=== PATIENT | female | born 1965 ===

== ENCOUNTER 2020-03-28 11:50 | Outpatient (CLI) | payer BC | END 2020-03-28 11:51 | disposition home or self-care (01) | LOC: COV 11:50 | PROVIDERS: ATTEND Family Medicine | DX: Z20.828 Contact with and (suspected) exposure to other viral communicable diseases (principal) ==

== ENCOUNTER 2023-09-10 15:42 | Outpatient (CLI) | payer BC ==
--- NOTE | 2023-09-10 20:47 | XRAY Report ---
PROCEDURE: Hips w/Pelvis 2-3V BL INDICATIONS: LEFT HIP PAIN TECHNIQUE: 2 view(s) of the hip were acquired. COMPARISON: None FINDINGS: Bones: No fractures or dislocations. No suspicious bony lesions. The visualized pelvic ring appear s intact. Moderate degenerative changes noted in the lower lumbar spine Soft tissues: No suspicious soft tissue calcifications or masses. IMPRESSION: Moderate degenerative changes noted lower lumbar spine Reviewed by: Jessee Del Cid MD on 09/10/2023 7:46 PM AKDT Approved by: Jessee Del Cid MD on 09/10/2023 7:46 PM AKDT Station ID: [id number]
== END 2023-09-10 15:43 | disposition home or self-care (01) ==
LOC: DI 15:42
PROVIDERS: ATTEND Physician Assistant
DX: M47.816 Spondylosis without myelopathy or radiculopathy, lumbar region (principal)